=== PATIENT | male | born 2000 | race Two or more races ===

== ENCOUNTER 2024-10-10 12:19 | Emergency (ER) | payer SELFPAY ==
[~2024-10-10] VITALS: Ht 154.9 cm; Wt 75.0 kg
[2024-10-10 12:25] VITALS: TEMP 97.7
[2024-10-10 14:10] VITALS: BP 123/67; PULSE 72; RESP 18; O2SAT 99
[2024-10-10] MEDS ORDERED: AMOX600S42 PO (14:37)
== END 2024-10-10 14:48 | disposition home or self-care (01) ==
LOC: EMS 12:28
DX: K13.0 Diseases of lips (principal); J45.909 Unspecified asthma, uncomplicated
CPT/HCPCS: 99283; Z7502